=== PATIENT | male | born 1990 | race Caucasian/White ===

== ENCOUNTER 2021-01-23 20:53 | Emergency (ER) | payer OTHER ==
[~2021-01-23] VITALS: Ht 188 cm; Wt 115.7 kg
[~2021-01-23 20:53] MED LIST: AMOX500 PO; IBUP400 PO; Robaxin500 MG PO
[2021-01-23] MEDS ORDERED: AMOCLA875 PO (22:16)
== END 2021-01-23 22:21 | disposition home or self-care (01) ==
LOC: ER 20:53
DX: S51.851A Open bite of right forearm, initial encounter (principal); W54.0XXA Bitten by dog, initial encounter
CPT/HCPCS: 64450; 73090; 99283-25; A9270

== ENCOUNTER 2023-08-15 10:17 | Emergency (ER) | payer OTHER ==
[~2023-08-15] VITALS: Ht 188 cm; Wt 97.1 kg
[~2023-08-15 10:17] MED LIST changes: +AMOCLA875 PO
[2023-08-15 11:02] LABS: BASOPHILS ABSOLUTE AUTO 0.07 K/mm3 (0.00-0.23); BASOPHILS PERCENT AUTO 1 % (0-2); EOSINOPHILS ABSOLUTE AUTO 0.12 K/mm3 (0.00-0.68); EOSINOPHILS PERCENT AUTO 2 % (0-6); Hematocrit 51.1 % (37.0-53.0); Hemoglobin 18.5 g/dL (13.5-17.5); IMMATURE GRAN ABSOLUTE AUTO 0.01 K/mm3 (0.00-0.10); IMMATURE GRAN PERCENT AUTO 0 % (0-1); LYMPHOCYTES ABSOLUTE AUTO 2.03 K/mm3 (0.84-5.20); LYMPHOCYTES PERCENT AUTO 35 % (21-46); MONOCYTES ABSOLUTE AUTO 0.51 K/mm3 (0.16-1.47); MONOCYTES PERCENT AUTO 9 % (4-13); Mean Corpuscular HGB 35.4 pg (26.0-34.0); Mean Corpuscular HGB Conc 36.2 g/dL (31.5-36.5); Mean Corpuscular Volume 98 fL (80-100); Mean Platelet Volume 10.4 fL (9.1-12.4); NEUTROPHILS ABSOLUTE AUTO 3.09 K/mm3 (1.96-9.15); NEUTROPHILS PERCENT AUTO 53 % (41-73); Platelet Count 195 K/mm3 (150-400); RDW Coefficient Variation 16.4 % (11.7-14.2); RDW Standard Deviation 59.5 fL (35.1-46.3); Red Blood Cell Count 5.22 M/mm3 (4.30-5.90); White Blood Cell Count 5.83 K/mm3 (4.00-11.30)
[2023-08-15 11:26] LABS: Albumin, Blood 3.3 g/dL (3.4-5.0); Albumin/Globulin Ratio 0.8 (0.8-1.8); Bilirubin, Total 0.4 mg/dL (0.1-1.0); Calcium, Blood 9.2 mg/dL (8.5-10.1); Creatinine, Blood 0.75 mg/dL (0.60-1.20); Globulin, Blood 4.4 g/dL (2.2-4.0); Potassium, Blood 3.4 mmol/L (3.5-5.5); Total Protein, Blood 7.7 g/dL (6.4-8.2)
[2023-08-15] MEDS ORDERED: PEPCID20 MG PO (12:11)
[2023-08-15 14:15] LABS: Free Thyroxine 0.87 ng/dL (0.70-1.60)
[2023-08-15 14:17] LABS: Thyroid Stimulating Hormone 1.05 uIU/mL (0.360-4.800); Triiodothyronine, Free 3.36 pg/mL (2.18-3.98)
[2023-08-15 14:26] LABS: U Amphetamine Screen Not Detected; U Barbituate Screen Not Detected; U Benzodiazapine Screen Not Detected; U Buprenorphine Screen Not Detected; U Cannabinoids Screen Not Detected; U Cocaine Screen Not Detected; U Methadone Screen Not Detected; U Methamphetamine Screen Not Detected; U Opiates Screen Not Detected; U Oxycodone Screen Not Detected; U Phencyclidine Screen Not Detected
[2023-08-15] MEDS ORDERED: DILTIAZEM 24HR240 M3 PO (15:17)
[2023-08-15 15:30] VITALS: BP 139/78
== END 2023-08-15 15:50 | disposition home or self-care (01) ==
LOC: ER 10:17
PROVIDERS: Physician Assistant; Student in an Organized Health Care Education/Training Program
DX: I47.19 Other supraventricular tachycardia (principal); E87.6 Hypokalemia; F10.90 Alcohol use, unspecified, uncomplicated; F17.200 Nicotine dependence, unspecified, uncomplicated; Z79.899 Other long term (current) drug therapy
CPT/HCPCS: 71045; 80053; 83690; 83735; 84439; 84443; 84481; 84484; 85025; 92960; 93005; 93010; 93246; 96365; 96366; 96367; 96375; 96376; 99285-25; J0153; J2060; J3475; J3480; J7030; J7050